=== PATIENT | male | born 1975 | race Caucasian/White ===

== ENCOUNTER 2017-08-23 20:41 | Emergency (ER) | payer MEDICAID ==
[~2017-08-23] VITALS: Ht 185.4 cm; Wt 117.9 kg
[~2017-08-23 20:41] MED LIST: CLONAZEPAM 0.50.5 M1 PO; CLONAZEPAM 1 MG1 M1; DEPAKOTE ER500 MG; FLEXERIL PO; HYDROCODONE-AP1 EAC6 PO; LITHIUM CARBON300 M3; LITHIUM CARBON300 M3 PO; MEDROLDOSEPACK PO; MOBIC7.5 M1 PO; NOHOMEMEDICATIONS; NORCO 5-325 TA1 EAC1 PO; NORCO 5-325 TA1 EACH PO; PERCOCET 5-3251 EACH PO; PERCOCET 7.5-31 EACH PO; PROPRANOLOL 1010 MG PO; ROBAXIN 750 MG750 M1 PO; TRAMADOL 50 MG50 MG PO
[2017-08-23] MEDS ORDERED: NORCO 5-325 TA1 EACH PO (21:05)
[2017-08-23] MEDS ORDERED: FLEXERIL PO (21:05)
[2017-08-23] MEDS ORDERED: PREDNISONE 20 M20 M1 PO (21:05)
[2017-08-23 21:12] VITALS: BP 148/79
== END 2017-08-23 21:13 | disposition home or self-care (01) ==
LOC: M.ERS 20:41
DX: S39.012A Strain of muscle, fascia and tendon of lower back, initial encounter (principal); F17.210 Nicotine dependence, cigarettes, uncomplicated; Z88.6 Allergy status to analgesic agent; X58.XXXA Exposure to other specified factors, initial encounter; Y93.89 Activity, other specified; Y92.89 Other specified places as the place of occurrence of the external cause; Y99.8 Other external cause status

== ENCOUNTER 2018-01-17 18:03 | Emergency (ER) | payer MEDICAID ==
[~2018-01-17] VITALS: Ht 185.4 cm; Wt 117.9 kg
[~2018-01-17 18:03] MED LIST changes: +PREDNISONE 20 M20 M1 PO
[2018-01-17 18:12] VITALS: BP 148/84
[2018-01-17] MEDS ORDERED: IBUPROFEN 800800 M1 PO (18:19)
[2018-01-17] MEDS ORDERED: MOBIC15 MG PO (18:28)
[2018-01-17] MEDS ORDERED: FLEXERIL PO (18:28)
[2018-01-17] MEDS ORDERED: NORCO 5-325 TA1 EACH PO (18:28)
== END 2018-01-17 18:35 | disposition home or self-care (01) ==
LOC: M.ERS 18:03
DX: G89.29 Other chronic pain (principal); M54.5 Low back pain; F31.9 Bipolar disorder, unspecified; F17.210 Nicotine dependence, cigarettes, uncomplicated; Z88.6 Allergy status to analgesic agent

== ENCOUNTER 2018-07-18 17:14 | Emergency (ER) | payer MEDICAID ==
[~2018-07-18] VITALS: Ht 185.4 cm; Wt 113.4 kg
[~2018-07-18 17:14] MED LIST changes: +IBUPROFEN 800800 M1 PO; +MOBIC15 MG PO
[2018-07-18] MEDS ORDERED: DEPAKOTE125 MG (17:21)
[2018-07-18] MEDS ORDERED: NORCO 7.5-3251 EACH PO (19:55)
[2018-07-18] MEDS ORDERED: FLEXERIL PO (19:55)
[2018-07-18 20:24] VITALS: BP 132/87
== END 2018-07-18 20:25 | disposition home or self-care (01) ==
LOC: M.ERS 17:14
DX: S39.012A Strain of muscle, fascia and tendon of lower back, initial encounter (principal); F31.9 Bipolar disorder, unspecified; F17.210 Nicotine dependence, cigarettes, uncomplicated; Z88.6 Allergy status to analgesic agent; W00.0XXA Fall on same level due to ice and snow, initial encounter; Y93.89 Activity, other specified; Y92.89 Other specified places as the place of occurrence of the external cause; Y99.8 Other external cause status

== ENCOUNTER 2018-09-23 15:50 | Emergency (ER) | payer MEDICAID ==
[~2018-09-23] VITALS: Ht 185.4 cm; Wt 117.9 kg
[~2018-09-23 15:50] MED LIST changes: +DEPAKOTE125 MG; +NORCO 7.5-3251 EACH PO
[2018-09-23] MEDS ORDERED: LOXAPINE50 MG PO (16:01)
[2018-09-23] MEDS ORDERED: BENZTROPINE MESY2 MG PO (16:02)
[2018-09-23] MEDS ORDERED: ABILIFY10 MG PO (16:02)
[2018-09-23] MEDS ORDERED: PROPRANOLOL 1010 MG PO (16:02)
[2018-09-23] MEDS ORDERED: CLONAZEPAM 1 MG1 M1 PO (16:03)
[2018-09-23] MEDS ORDERED: IBUPROFEN 800800 M1 PO (16:47)
[2018-09-23 17:18] VITALS: BP 112/80
== END 2018-09-23 17:19 | disposition home or self-care (01) ==
LOC: M.ERS 15:50
DX: M72.2 Plantar fascial fibromatosis (principal); F17.210 Nicotine dependence, cigarettes, uncomplicated; F31.9 Bipolar disorder, unspecified; M54.9 Dorsalgia, unspecified; G89.29 Other chronic pain; Z88.6 Allergy status to analgesic agent; Z88.8 Allergy status to other drugs, medicaments and biological substances

== ENCOUNTER 2019-05-18 17:12 | Emergency (ER) | payer MEDICAID ==
[~2019-05-18] VITALS: Ht 185.4 cm; Wt 120.2 kg
[~2019-05-18 17:12] MED LIST changes: +ABILIFY10 MG PO; +BENZTROPINE MESY2 MG PO; +CLONAZEPAM 1 MG1 M1 PO; +LOXAPINE50 MG PO
[2019-05-18 17:36] LABS: URINE BILIRUBIN NEGATIVE (Negative); URINE BLOOD NEGATIVE (Negative); URINE CLARITY CLEAR; URINE COLOR YELLOW; URINE GLUCOSE-RANDOM NEGATIVE (Negative); URINE KETONES NEGATIVE (Negative); URINE LEUKOCYTES-REFLEX NEGATIVE (Negative); URINE NITRITE-REFLEX NEGATIVE (Negative); URINE PROTEIN NEGATIVE (Negative); URINE SPECIFIC GRAVITY 1.015 (1.005-1.030); URINE UROBILINOGEN 0.2 E.U./dl (0.2-1.0)
[2019-05-18 17:52] LABS: ABSOLUTE BASOPHILS 0.1 thou/uL (0.0-0.2); ABSOLUTE EOSINOPHILS 0.1 thou/uL (0.0-0.7); ABSOLUTE LYMPHOCYTES 1.8 thou/uL (0.8-5.3); ABSOLUTE MONOCYTES 0.5 thou/uL (0.0-1.2); ABSOLUTE NEUTROPHILS 2.6 thou/uL (1.6-8.1); BASOPHILS 1.4 %; EOSINOPHILS 2.6 %; HEMATOCRIT 45.8 % (42.0-52.0); LYMPHOCYTES 35.1 %; MCH 32.2 pg (26.0-34.0); MCHC 34.9 g/dL (28.0-37.0); MCV 92.3 fL (80.0-100.0); MONOCYTES 9.1 %; MPV 9.8 fl. (7.2-11.1); NUCLEATED RBCS 0 /100WBC; PLATELET COUNT* 181 thou/uL (150-400); POLYS 51.8 %; RBC 4.96 mil/uL (4.50-6.00); RDW-CV 13.8 % (10.5-14.5); WBC 5.1 thou/uL (4.0-11.0)
[2019-05-18 18:00] LABS: CALCIUM 8.9 mg/dL (8.5-10.1); CREATININE 0.9 mg/dL (0.6-1.3); POTASSIUM 4.5 mmol/L (3.5-5.1)
[2019-05-18 18:05] LABS: TOTAL BILIRUBIN 0.4 mg/dL (<0.1-1.0); TOTAL PROTEIN 6.7 g/dL (6.4-8.2)
[2019-05-18 18:10] LABS: AMP/METHAMP Negative (Negative); BARBITURATES Negative (Negative); BENZODIAZEPINES Negative (Negative); COCAINE Negative (Negative); METHADONE Negative (Negative); OPIATES Negative (Negative); PCP Negative (Negative); THC Negative (Negative)
[2019-05-18] MEDS ORDERED: COLACE100 MG PO (18:55)
[2019-05-18] MEDS ORDERED: CITRATE OF MAG296 ML PO (18:55)
[2019-05-18] MEDS ORDERED: MIRALAX119 GM PO (18:55)
[2019-05-18 19:13] VITALS: BP 124/88
== END 2019-05-18 19:14 | disposition home or self-care (01) ==
LOC: M.ERS 17:12
PROVIDERS: Physician Assistant
DX: K59.00 Constipation, unspecified (principal); G89.29 Other chronic pain; M54.9 Dorsalgia, unspecified; F31.9 Bipolar disorder, unspecified; F17.210 Nicotine dependence, cigarettes, uncomplicated; Z98.890 Other specified postprocedural states; Z88.6 Allergy status to analgesic agent; Z88.8 Allergy status to other drugs, medicaments and biological substances

== ENCOUNTER 2019-12-10 13:58 | Emergency (ER) | payer MEDICAID ==
[~2019-12-10] VITALS: Ht 185.4 cm; Wt 120.2 kg
[~2019-12-10 13:58] MED LIST changes: +CITRATE OF MAG296 ML PO; +COLACE100 MG PO; +MIRALAX119 GM PO
[2019-12-10 14:08] VITALS: BP 162/93
[2019-12-10] MEDS ORDERED: NYSTATIN 100,0015 G1 TOP (14:29)
[2019-12-10] MEDS ORDERED: DIFLUCAN150 MG PO (14:29)
== END 2019-12-10 14:42 | disposition home or self-care (01) ==
LOC: M.ERS 13:58
DX: B37.9 Candidiasis, unspecified (principal); G89.29 Other chronic pain; F17.210 Nicotine dependence, cigarettes, uncomplicated; Z88.6 Allergy status to analgesic agent; Z88.8 Allergy status to other drugs, medicaments and biological substances